=== PATIENT | female | born 1995 | race Caucasian/White ===

== ENCOUNTER 2023-10-08 17:19 | Emergency (ER) | payer OTHER, SELFPAY ==
[2023-10-08 17:21] VITALS: BP 133/90
[2023-10-08 17:44] LABS: % Basophils 0.8 % (0-2); % Immature Granulocytes 0.4 % (0-0.5); % Lymphocytes 34.3 % (20.5-51.1); % Monocytes 6.5 % (1.7-9.3); Absolute Basophils 0.1 10^3/uL (0-0.2); Absolute Eosinophils 0.2 10^3/uL (0-0.7); Absolute Lymphocytes 2.6 10^3/uL (1.2-3.4); Absolute Monocytes 0.5 10^3/uL (0.1-0.6); Absolute Neutrophils 4.3 10^3/uL (1.4-6.5); Hemoglobin 13.3 g/dL (12.0-16.0); Mean Corp Hgb Conc. 35.9 g/dL (33.0-37.0); Mean Corpuscular Hgb 29.5 pg (27.0-31.0); Mean Platelet Volume 9.3 fL (7.4-10.4); Nucleated Red Blood Cells % 0 %; Platelet Count 314 10^3/uL (130-400); Red Blood Cell Count 4.51 10^6/uL (4.20-5.40); Red Cell Dist. Width 11.8 % (11.5-14.5); White Blood Cell Count 7.6 10^3/uL (4.8-10.8)
[2023-10-08 17:54] LABS: HCG, Serum Qualitative Screen Negative
[2023-10-08 17:57] LABS: ALT (SGPT) 12 U/L (0-35); AST (SGOT) 26 U/L (14-36); Albumin 4.9 g/dl (3.5-5.0); Alkaline Phosphatase 68 U/L (38-126); Blood Urea Nitrogen 7 mg/dl (7-17); Calcium 9.8 mg/dl (8.4-10.2); Carbon Dioxide 22 mmol/L (22-30); Chloride 105 mmol/L (98-107); Glucose 95 mg/dl (70-99); Potassium 3.8 mmol/L (3.5-5.1); Sodium 137 mmol/L (135-145); Total Bilirubin 0.4 mg/dl (0.2-1.3); Total Protein 8.1 g/dl (6.3-8.2); eGFR > 60.00
[2023-10-08 17:58] LABS: Lipase 252 U/L (23-300)
[2023-10-08 18:46] VITALS: BMI 21.8
[2023-10-08 18:48] VITALS: BP 126/83
--- NOTE | 2023-10-08 19:06 | ED.GENMED ---
History of Present Illness
General
Chief Complaint: Abdominal Pain
Source: patient
Exam Limitations: none
Time Seen by Provider: 10/08/23 18:20
History of Present Illness
History of Present Illness:
This is a 28 year old female that comes in with c/o epigastric pain. States that this started about 2 weeks ago. states that she went to on Wednesday and they gave her Prilosec and Zofran. States that on Wednesday she vomiting and had diarrhea.
States that she called the PCP and was told they were unable to see her until . States that the pain is the worse in the morning and that it seems to get better after eating and throughout the day. States that she has been nauseated and had
a headache. Denies any fever, chills, chest pain, SOB, vomiting, diarrhea, dizziness, urinary burning.
Past History
Past History
ED Past Medical History: Other (Psoriasis)
ED Past Surgical History: None
Social History
Tobacco: Non-smoker
Alcohol: Occasional
Drug: None
Personal: Single
Living: with family
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
Review of Systems
Review of Systems
All Other Systems: ROS reviewed and negative except as documented in HPI and ROS
Constitutional: Reports no symptoms; Denies fever or chills
EENT: Reports no symptoms
Respiratory: Reports no symptoms; Denies cough or trouble breathing
Cardiac: Reports no symptoms; Denies chest pain
ABD/GI: Reports abdominal pain and nausea; Denies vomiting or diarrhea
: Reports no symptoms; Denies dysuria, frequency or urgency
Musculoskeletal: Reports no symptoms
Skin: Reports no symptoms
Neurological: Reports headache; Denies dizzy
Psychiatric: Reports no symptoms
Phy Exam
General Physical Exam
General Presentation: well appearing and no apparent distress
General age: appears stated age
General Skin: warm and dry
General Habitus: normal
General Mental: alert
General Hydration: appears well hydrated
ENT Exam
ENT Exam: TM's normal, pharynx normal and neck supple
Eye Exam
Eye Exam: EOMI
Cardiovascular Exam
Cardiovascular Exam: regular rate/rhythm, no edema, no murmur and normal peripheral pulses
Pulmonary Exam
Pulmonary Exam: lungs clear, no respiratory distress, no rales, chest non tender, no crackles, no rhonchi, no wheezing and no cough
Gastrointestinal Exam
Gastrointestinal Exam: normal bowel sounds, soft, no organomegaly, no pulsatile mass, non distended and tender (Slight epigastric area)
Musculoskeletal Exam
Musculoskeletal Exam: full ROM and no edema
Skin Exam
Skin Exam: normal color, warm/dry, no rash and no petechia
Psychiatric Exam
Psychiatric Exam: normal mood/affect
Course
Orders/Labs/Results
Orders:
Orders
10/08/23 17:29
Test Result ONCE
10/08/23 17:36
Complete Blood Count/With Diff Urgent
Comprehensive Metabolic Panel Urgent
HCG, Serum Qualitative Screen Urgent
Lipase Urgent
10/08/23 19:05
Sucralfate Suspension [Carafate Suspension] 1 gm PO NOW STA
10/08/23 17:36
10/08/23 17:36
Labs unremarkable. Lipase normal at 253, HCG negative.
Vital Signs
Initial and Last Documented VS:
Initial Vital Signs
Temp Pulse Resp BP Pulse Ox
98 F 94 14 133/90 100
10/08/23 17:21 10/08/23 17:21 10/08/23 17:21 10/08/23 17:21 10/08/23 17:21
Last Documented Vital Signs
Temp Pulse Resp BP Pulse Ox
98 F 94 18 126/83 98
10/08/23 17:21 10/08/23 18:48 10/08/23 18:48 10/08/23 18:48 10/08/23 18:48
MDM/Problems Addressed
Differential Diagnosis Includes:
Gastritis, developing Ulcer
MDM/Problems Addressed:
This is a 28 year old female that comes in with c/o epigastric pain. State that she was at on Wednesday and given Prilosec and Zofran. States that on Wednesday she had diarrhea and vomiting but has not had either since. States that she feels this is
not helping and that her discomfort is worse in the morning and gets better throughout the day.
Will check labs. Explained to patient that this is most likely a Gastritis or a developing Ulcer. patient to stay on a blade diet. Will add Carafate. Explained that the US or CT would help us with this pain and that she will need to see the GI
specialist. Patient to return with any concerns.
Chronic conditions affecting care:
NA
Acute Exacerbation and/or Progression of Chronic Illness:
NA
*Pulse Oximetry
Patient hypoxic: no
*EKG
Interpreted by ED Provider?: NA
Rate: EKG- N/A
*Logging Contractor Interpretation
Rate: Logging Contractor- N/A
*Critical Care Note
Total Time (30-74mins, 75-104mins- exclusive of procedures): Not Applicable
ED Attending Note
-
Portions of this chart may have been created with voice recognition software.� Occasional wrong word or��sound alike� substitutions may have occurred due to the inherent limitations of voice recognition software.
Discharge Plan
Departure
Patient Disposition: Home (Routine Discharge)
Date of Disposition: 10/08/23
Time of Disposition: 19:13
Patient with high blood pressure during this ER visit?: No
Condition: Good
Covid-19: Not Applicable
Discharge Problem:
Gastritis
Instructions: [place] Diet, Gastritis (DC)
Prescriptions:
New
sucralfate [Carafate] 1 gram tablet
1 g PO ACHS Qty: 40 0RF
Rx Instructions:
Dissolve in 2 tsp water, 30min-1hour before meals and HS
No Action
No Current Medications
valacyclovir [Valtrex] 1 gram tablet
1,000 mg PO BID Qty: 10 0RF
valacyclovir [Valtrex] 1 gram tablet
1,000 mg PO BID Qty: 10 0RF
Referrals:
Severo Douglas MD [Family Provider] - Follow up in 10 days
Activity Restrictions/Additional Instructions:
As discussed, your blood work is normal. This is most likely a gastritis or a developing ulcer. Please continue with the Prilosec that you were given. You have had a prescription sent to your Pharmacy for Carafate. Please take this 30 min to 1 hour
before meals and at bedtime. Please dissolve this in 2 tsp of water and drink. Follow up with the family doctor for recheck. You have also been given the Name of a Gastrointestinal specialist for further evaluation. Try to stay away from caffeine
products as this irritates the stomach lining. IF YOU HAVE INCREASED OR CHANGING PAIN, FEVER, OR YOU HAVE ANY OTHER CONCERNS PLEASE RETURN TO THE EMERGENCY ROOM.
Interventions
Interventions:
*Risk Screen - Suicide Last Done: 10/08/23 17:21
*General Assessment Last Done: 10/08/23 17:21
*Neglect/Abuse Screening Last Done: 10/08/23 17:21
ED- Fall Risk Assessment Last Done: 10/08/23 18:51
*ED COVID-19 Vaccine History Last Done: 10/08/23 17:21
ZA-Tupdfw-Ceypexrwsw Assessment Last Done: 10/08/23 18:50
Discharge Date and Time
Print Language: JAMAICAN
[2023-10-08] MEDS: CARAFATE SUSPENSION 1 GM PO (19:26)
== END 2023-10-08 19:29 | disposition home or self-care (01) ==
LOC: EMR 17:19
PROVIDERS: Emergency Medicine; EMERGENCY PHYSICIAN Emergency Medicine; FAMILY PHYSICIAN Family Medicine
DX: K29.70 Gastritis, unspecified, without bleeding (principal); L40.9 Psoriasis, unspecified
CPT/HCPCS: 99283; 80053; 83690; 84703; 85025

== ENCOUNTER 2023-11-03 18:50 | Emergency (ER) | payer OTHER, SELFPAY ==
--- NOTE | 2023-11-03 19:03 | ED.PDOC.TRB ---
ED Provider Triage
-
Patient seen by provider in Triage?: Seen in Triage
This is a 28 year old female that comes in with c/o abd pain. States that she was here first week of september. States that she saw her PCP and was told to see GI. States that she can't see GI until January 23. States that she is nauseated and can'
eat. States that she has take Protonix. Patient is no longer on the Carafate. Nothing helps. States that she feels the same and that the pain is in the upper abd.
[2023-11-03 19:04] VITALS: BP 119/99
[2023-11-03 19:25] LABS: % Basophils 0.7 % (0-2); % Eosinophils 1.5 % (0-6); % Immature Granulocytes 0.3 % (0-0.5); % Monocytes 8.1 % (1.7-9.3); % Neutrophils 59.4 % (42.2-75.2); Absolute Basophils 0.1 10^3/uL (0-0.2); Absolute Eosinophils 0.1 10^3/uL (0-0.7); Absolute Lymphocytes 2.2 10^3/uL (1.2-3.4); Absolute Monocytes 0.6 10^3/uL (0.1-0.6); Absolute Neutrophils 4.3 10^3/uL (1.4-6.5); Hematocrit 36.8 % (37.0-47.0); Hemoglobin 13.3 g/dL (12.0-16.0); Mean Corp Hgb Conc. 36.1 g/dL (33.0-37.0); Mean Corpuscular Hgb 29.6 pg (27.0-31.0); Mean Corpuscular Volume 81.8 fL (81.0-99.0); Mean Platelet Volume 9.5 fL (7.4-10.4); Nucleated Red Blood Cells % 0 %; Platelet Count 336 10^3/uL (130-400); Red Cell Dist. Width 11.7 % (11.5-14.5); White Blood Cell Count 7.3 10^3/uL (4.8-10.8)
[2023-11-03 19:38] LABS: HCG, Serum Qualitative Screen Negative
[2023-11-03 19:42] LABS: ALT (SGPT) 12 U/L (0-35); AST (SGOT) 26 U/L (14-36); Albumin 4.8 g/dl (3.5-5.0); Alkaline Phosphatase 66 U/L (38-126); Blood Urea Nitrogen 9 mg/dl (7-17); Calcium 9.9 mg/dl (8.4-10.2); Carbon Dioxide 21 mmol/L (22-30); Chloride 104 mmol/L (98-107); Glucose 93 mg/dl (70-99); Potassium 3.9 mmol/L (3.5-5.1); Sodium 143 mmol/L (135-145); Total Bilirubin 0.5 mg/dl (0.2-1.3); eGFR > 60.00
[2023-11-03 19:43] LABS: Lipase 175 U/L (23-300)
[2023-11-03 21:30] VITALS: BP 137/82
--- NOTE | 2023-11-03 22:17 | ED.GENMED ---
History of Present Illness
General
Chief Complaint: Abdominal Pain
Source: patient
Exam Limitations: none
Time Seen by Provider: 11/03/23 21:38
History of Present Illness
History of Present Illness:
This is a 28 year old female that comes in with c/o abd pain. States that she was seen here in the past and she followed up with her PCP. States that she has been on a bland diet and the PCP told her that it would just go away. States that she was
not getting any better so she called the GI specialist and she can't get in until January 23. States that she is having Trouble eating and going to work due to the pain. States that this has been going on since September 22. States that she is
nauseated and has a headache. Denies any fever, chills, chest pain, SOB, vomiting, diarrhea, dizziness, urinary burning.
Past History
Past History
ED Past Medical History: Other (Psoriasis); Negative Asthma, HTN, Hypercholesterolemia or NIDDM
ED Past Surgical History: None
Social History
Tobacco: Non-smoker
Alcohol: None
Drug: None
Personal: Single
Living: with family
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
Review of Systems
Review of Systems
All Other Systems: ROS reviewed and negative except as documented in HPI and ROS
Constitutional: Reports no symptoms; Denies fever or chills
EENT: Reports no symptoms
Respiratory: Denies no symptoms, cough or trouble breathing
Cardiac: Reports no symptoms; Denies chest pain
ABD/GI: Reports abdominal pain and nausea; Denies vomiting or diarrhea
: Reports no symptoms; Denies dysuria, frequency or urgency
Musculoskeletal: Reports no symptoms
Skin: Reports no symptoms
Neurological: Reports headache; Denies dizzy
Psychiatric: Reports no symptoms
Phy Exam
General Physical Exam
General Presentation: well appearing and no apparent distress
General age: appears stated age
General Skin: warm and dry
General Habitus: normal
General Mental: alert
General Hydration: appears well hydrated
ENT Exam
ENT Exam: TM's normal, pharynx normal and neck supple
Eye Exam
Eye Exam: EOMI
Cardiovascular Exam
Cardiovascular Exam: regular rate/rhythm, no edema, no murmur and normal peripheral pulses
Pulmonary Exam
Pulmonary Exam: lungs clear, no respiratory distress, no rales, chest non tender, no crackles, no rhonchi, no wheezing and no cough
Gastrointestinal Exam
Gastrointestinal Exam: normal bowel sounds, soft, no organomegaly, no pulsatile mass, non distended and tender (epigastric and RUQ tenderness with palpation)
Musculoskeletal Exam
Musculoskeletal Exam: full ROM and no edema
Skin Exam
Skin Exam: normal color, warm/dry, no rash and no petechia
Psychiatric Exam
Psychiatric Exam: normal mood/affect
Course
Orders/Labs/Results
Orders:
Orders
11/03/23 19:06
Test Result ONCE
11/03/23 19:16
Complete Blood Count/With Diff Urgent
Comprehensive Metabolic Panel Urgent
HCG, Serum Qualitative Screen Urgent
Lipase Urgent
11/03/23 22:16
Pantoprazole [Protonix] 40 mg PO NOW STA
Sucralfate Suspension [Carafate Suspension] 1 gm PO NOW STA
US Abdomen Complete/Upper Urgent
Comment:
Reason For Exam: Epigastric and right upper quadrent pain
Abnormal Lab Results
11/03/23
19:16
Hct 36.8 L %
(37.0-47.0)
Carbon Dioxide 21 L mmol/L
(22-30)
11/03/23 19:16
11/03/23 19:16
C02 slightly low. HCG negative. Lipase normal at 175
Vital Signs
Initial and Last Documented VS:
Initial Vital Signs
Temp Pulse Resp BP Pulse Ox
99.1 F 113 20 119/99 100
11/03/23 19:04 11/03/23 19:04 11/03/23 19:04 11/03/23 19:04 11/03/23 19:04
Last Documented Vital Signs
Temp Pulse Resp BP Pulse Ox
99.1 F 113 20 119/99 100
11/03/23 19:04 11/03/23 19:04 11/03/23 19:04 11/03/23 19:04 11/03/23 19:04
MDM/Problems Addressed
Differential Diagnosis Includes:
Gastritis, Anxiety
MDM/Problems Addressed:
This is a 28 year old female that comes in with c/o upper abd pain. States that this has been going on since August. States that she was seen here and has seen her PCP but is unable to get in with GI specialist until December.
Will check labs, Ultrasound. Give Protonix and Carafate.
Back into see patient. Explained that her Ultrasound is normal. Will have patient use Protonix and Carafate and follow up with the GI specialist. Return with any concerns.
Chronic conditions affecting care:
NA
Acute Exacerbation and/or Progression of Chronic Illness:
NA
*Radiology
Radiology exam reviewed: radiology read reviewed (US-Unremarkable)
*Pulse Oximetry
Patient hypoxic: no
*EKG
Interpreted by ED Provider?: NA
Rate: EKG- N/A
*Financial Planning Assistant Interpretation
Rate: Financial Planning Assistant- N/A
*Critical Care Note
Total Time (30-74mins, 75-104mins- exclusive of procedures): Not Applicable
ED Attending Note
-
Portions of this chart may have been created with voice recognition software.� Occasional wrong word or��sound alike� substitutions may have occurred due to the inherent limitations of voice recognition software.
Discharge Plan
Departure
Patient Disposition: Home (Routine Discharge)
Date of Disposition: 11/03/23
Time of Disposition: 23:50
Patient with high blood pressure during this ER visit?: No
Condition: Good
Covid-19: Not Applicable
Discharge Problem:
Gastritis
Instructions: Gastritis (DC)
Prescriptions:
New
pantoprazole [Protonix] 40 mg tablet,delayed release (DR/EC)
40 mg PO DAILY Qty: 30 0RF
sucralfate [Carafate] 1 gram tablet
1 g PO ACHS Qty: 40 0RF
Rx Instructions:
dissolve 2tsp of water, take 30 min to 1 hour before meals and HS
No Action
No Current Medications
valacyclovir [Valtrex] 1 gram tablet
1,000 mg PO BID Qty: 10 0RF
valacyclovir [Valtrex] 1 gram tablet
1,000 mg PO BID Qty: 10 0RF
sucralfate [Carafate] 1 gram tablet
1 g PO ACHS Qty: 40 0RF
Rx Instructions:
Dissolve in 2 tsp water, 30min-1hour before meals and HS
Referrals:
Severo Douglas MD [Family Provider] - Call in 1-3 days for appt
Activity Restrictions/Additional Instructions:
As discussed, your blood work is normal along with your Ultrasound. Please increase your water intake to 8-8oz glasses daily. Follow up with the GI specialist for further evaluation. You have had 2 prescriptions sent to your Pharmacy. The first is
for Protonix. Please take this daily as directed. The second is for Carafate. Please dissolve in 2 tsp of water and drink 30min to 1 hour before meals and at bedtime. IF YOU HAVE ANY OTHER CONCERNS PLEASE RETURN TO THE EMERGENCY ROOM.
Discharge Date and Time
Print Language: MALDIVIAN
[2023-11-03] MEDS: PROTONIX 40 MG PO (23:04)
[2023-11-03] MEDS: CARAFATE SUSPENSION 1 GM PO (23:04)
[2023-11-04 00:05] VITALS: BP 108/84
== END 2023-11-04 00:21 | disposition home or self-care (01) ==
LOC: EMR 18:50
PROVIDERS: Clinical Nurse Specialist Family Health; EMERGENCY PHYSICIAN Emergency Medicine; FAMILY PHYSICIAN Family Medicine
DX: K29.70 Gastritis, unspecified, without bleeding (principal); L40.9 Psoriasis, unspecified
CPT/HCPCS: 99284; 76700; 80053; 83690; 84703; 85025

== ENCOUNTER 2023-11-05 10:10 | Emergency (ER) | payer OTHER, SELFPAY ==
[2023-11-05 10:13] VITALS: BP 139/85
--- NOTE | 2023-11-05 10:37 | ED.GENMED ---
History of Present Illness
<Jad Laboy PA-C - Last Filed: 11/05/23 13:14>
General
Chief Complaint: Abdominal Pain
Source: patient and family
Time Seen by Provider: 11/05/23 10:17
History of Present Illness
History of Present Illness:
28-year-old female presenting to the emergency department for reevaluation after being seen 2 days ago and diagnosed with suspected gastritis due to worsening pain, dry heaves and generally feeling unwell. Patient did have an appointment scheduled
with GI for late December but and was able to get this appointment moved up to November 18 but due to the symptoms and no improvement with medications given 2 days ago decided to come back to the ER. States symptoms are not new today however does
note some pain within the lower part of her abdomen now. Social history noncontributory. Patient with minimal use of NSAIDs. Family history noncontributory. Last menstrual period October 27. No other concerns
Past History
<Jad Laboy PA-C - Last Filed: 11/05/23 13:14>
Past History
ED Past Medical History: None
<Gerardo Mcclellan DO - Last Filed: >
Past History
ED Past Medical History: Other (Psoriasis); Negative Asthma, HTN, Hypercholesterolemia or NIDDM
ED Past Surgical History: None
Social History
Tobacco: Non-smoker
Alcohol: None
Drug: None
Personal: Single
Living: with family
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
Review of Systems
<Jad Laboy PA-C - Last Filed: 11/05/23 13:14>
Review of Systems
All Other Systems: ROS reviewed and negative except as documented in HPI and ROS
Phy Exam
<Jad Laboy PA-C - Last Filed: 11/05/23 13:14>
Physical Exam
Physical Exam:
GENERAL: Alert , in no apparent distress
EYE: clear conjunctiva b/l
HEAD: NCAT
ENT: mmm.
CARDIAC: Regular rate and rhythm .
LUNGS: Clear breath sounds bilaterally, no acute respiratory distress, no wheezes/rales/rhonchi
ABDOMEN: Soft, generalized tenderness, no r/g, no cvat, negative Moore sign, no tenderness at McBurney's point
NEUROLOGICAL: Alert and oriented
SKIN: Warm and dry, skin intact.
MUSCULOSKELETAL: well perfused.
PSYCH: Normal and appropriate interaction.
Scores
<Jad Laboy PA-C - Last Filed: 11/05/23 13:14>
Heart Failure Risk
Heart Failure Risk Score: Not Applicable
Heart Score for Chest Pain Patients
STEMI patient?: Not applicable
Withdrawal Assessment of Alcohol
Withdrawal Assessment Completed?: Not applicable
Course
<Jad Laboy PA-C - Last Filed: 11/05/23 13:14>
Orders/Labs/Results
Orders:
Orders
11/05/23 10:38
CT Abd/pelvis W Iv Cont Urgent
Comment:
Reason For Exam: generalized abd pain
Mag Hydrox/Al Hydrox/Simeth [Maalox] 30 ml Phenobarb/Hyoscy/Atropine/Scop [] 10 ml Viscous Lidocaine 2% [Xylocaine Viscous Cup] 10 ml PO NOW
Ondansetron Injectable [Zofran] 4 mg IV NOW STA
Test Result ONCE
11/05/23 10:55
Complete Blood Count/With Diff Urgent
Comprehensive Metabolic Panel Urgent
HCG, Serum Qualitative Screen Urgent
Lipase Urgent
11/05/23 10:57
Mag Hydrox/Al Hydrox/Simeth [Maalox] 30 ml .ROUTE .STK-MED ONE
Phenobarb/Hyoscy/Atropine/Scop [] 10 ml .ROUTE .STK-MED ONE
Viscous Lidocaine 2% [Xylocaine Viscous Cup] 15 ml .ROUTE .STK-MED ONE
11/05/23 12:15
Urinalysis Reflex To Culture Urgent
Date Specimen was Collected: 11/05/23
Time Specimen was Collected: 11:51
Urine Microscopic Reflex Cult Urgent
Abnormal Lab Results
11/05/23 11/05/23
10:55 12:15
Calcium 10.3 H mg/dl
(8.4-10.2)
Leukocyte Esterase Rfl Trace A
(Negative)
Urine Bacteria (Reflex) Few A
(Negative)
11/05/23 10:55
11/05/23 10:55
Vital Signs
Initial and Last Documented VS:
Initial Vital Signs
Temp Pulse Resp BP Pulse Ox
98.2 F 107 16 139/85 98
11/05/23 10:13 11/05/23 10:13 11/05/23 10:13 11/05/23 10:13 11/05/23 10:13
Last Documented Vital Signs
Temp Pulse Resp BP Pulse Ox
98.2 F 73 16 108/76 100
11/05/23 10:13 11/05/23 12:24 11/05/23 12:24 11/05/23 12:24 11/05/23 12:24
Shwethalt;Julio Soares, DO - Last Filed: 11/06/23 09:40>
Orders/Labs/Results
Orders:
Orders
11/05/23 10:38
CT Abd/pelvis W Iv Cont Urgent
Comment:
Reason For Exam: generalized abd pain
Mag Hydrox/Al Hydrox/Simeth [Maalox] 30 ml Phenobarb/Hyoscy/Atropine/Scop [] 10 ml Viscous Lidocaine 2% [Xylocaine Viscous Cup] 10 ml PO NOW
Ondansetron Injectable [Zofran] 4 mg IV NOW STA
Test Result ONCE
11/05/23 10:55
Complete Blood Count/With Diff Urgent
Comprehensive Metabolic Panel Urgent
HCG, Serum Qualitative Screen Urgent
Lipase Urgent
11/05/23 10:57
Mag Hydrox/Al Hydrox/Simeth [Maalox] 30 ml .ROUTE .STK-MED ONE
Phenobarb/Hyoscy/Atropine/Scop [] 10 ml .ROUTE .STK-MED ONE
Viscous Lidocaine 2% [Xylocaine Viscous Cup] 15 ml .ROUTE .STK-MED ONE
11/05/23 12:15
Urinalysis Reflex To Culture Urgent
Date Specimen was Collected: 11/05/23
Time Specimen was Collected: 11:51
Urine Microscopic Reflex Cult Urgent
Abnormal Lab Results
11/05/23 11/05/23
10:55 12:15
Calcium 10.3 H mg/dl
(8.4-10.2)
Leukocyte Esterase Rfl Trace A
(Negative)
Urine Bacteria (Reflex) Few A
(Negative)
11/05/23 10:55
11/05/23 10:55
Vital Signs
Initial and Last Documented VS:
Initial Vital Signs
Temp Pulse Resp BP Pulse Ox
98.2 F 107 16 139/85 98
11/05/23 10:13 11/05/23 10:13 11/05/23 10:13 11/05/23 10:13 11/05/23 10:13
Last Documented Vital Signs
Temp Pulse Resp BP Pulse Ox
98.2 F 73 16 108/76 100
11/05/23 10:13 11/05/23 12:24 11/05/23 12:24 11/05/23 12:24 11/05/23 12:24
Shwethalt;Gerardo Mcclellan, DO - Last Filed: >
Orders/Labs/Results
Orders:
Orders
11/05/23 10:38
CT Abd/pelvis W Iv Cont Urgent
Comment:
Reason For Exam: generalized abd pain
Mag Hydrox/Al Hydrox/Simeth [Maalox] 30 ml Phenobarb/Hyoscy/Atropine/Scop [] 10 ml Viscous Lidocaine 2% [Xylocaine Viscous Cup] 10 ml PO NOW
Ondansetron Injectable [Zofran] 4 mg IV NOW STA
Test Result ONCE
11/05/23 10:55
Complete Blood Count/With Diff Urgent
Comprehensive Metabolic Panel Urgent
HCG, Serum Qualitative Screen Urgent
Lipase Urgent
11/05/23 10:57
Mag Hydrox/Al Hydrox/Simeth [Maalox] 30 ml .ROUTE .STK-MED ONE
Phenobarb/Hyoscy/Atropine/Scop [] 10 ml .ROUTE .STK-MED ONE
Viscous Lidocaine 2% [Xylocaine Viscous Cup] 15 ml .ROUTE .STK-MED ONE
11/05/23 12:15
Urinalysis Reflex To Culture Urgent
Date Specimen was Collected: 11/05/23
Time Specimen was Collected: 11:51
Urine Microscopic Reflex Cult Urgent
Abnormal Lab Results
11/05/23 11/05/23
10:55 12:15
Calcium 10.3 H mg/dl
(8.4-10.2)
Leukocyte Esterase Rfl Trace A
(Negative)
Urine Bacteria (Reflex) Few A
(Negative)
11/05/23 10:55
11/05/23 10:55
Vital Signs
Initial and Last Documented VS:
Initial Vital Signs
Temp Pulse Resp BP Pulse Ox
98.2 F 107 16 139/85 98
11/05/23 10:13 11/05/23 10:13 11/05/23 10:13 11/05/23 10:13 11/05/23 10:13
Last Documented Vital Signs
Temp Pulse Resp BP Pulse Ox
98.2 F 73 16 108/76 100
11/05/23 10:13 11/05/23 12:24 11/05/23 12:24 11/05/23 12:24 11/05/23 12:24
<Jad Laboy PA-C - Last Filed: 11/05/23 13:14>
MDM/Problems Addressed
Differential Diagnosis Includes:
GERD, gastritis, hiatal hernia, pancreatitis,, peptic ulcer disease, duodenitis, given duration of symptoms less concern for an acute surgical abdomen
MDM/Problems Addressed:
28-year-old female presenting back to the emergency department for evaluation after being seen a few days ago and diagnosed with suspected gastritis. Has an appointment scheduled with GI for November 18 now. No relief with Protonix and Carafate.
Still appears somewhat uncomfortable on exam given repeat visit will obtain CT scan to rule out any other acute surgical pathologies or other intra-abdominal pathologies. Will treat with green grabber and Zofran for continued nausea. Reassessment
following
<Jad Laboy PA-C - Last Filed: 11/05/23 13:14>
*Radiology
Radiology exam reviewed: radiology read reviewed
*Pulse Oximetry
Patient hypoxic: no
*Critical Care Note
Total Time (30-74mins, 75-104mins- exclusive of procedures): Not Applicable
Data Reviewed
Review of Other/Old Records Reveals: Records and Radiology Studies
<Jad Laboy PA-C - Last Filed: 11/05/23 13:14>
Patient Management
Escalation/DeEscalation of care consider admission/obs:
Patient CT without any acute abnormalities. She will f/u with GI as scheduled. Aware of return precautions and stable for d/c home
<Julio Soares DO - Last Filed: 11/06/23 09:40>
Update Note
Update Note:
Bentyl rx sent, as pharmacy does not have donnetal
ED Attending Note
<Gerardo Mcclellan DO - Last Filed: >
-
Portions of this chart may have been created with voice recognition software.� Occasional wrong word or��sound alike� substitutions may have occurred due to the inherent limitations of voice recognition software.
Discharge Plan
Departure
Patient Disposition: Home (Routine Discharge)
Date of Disposition: 11/05/23
Time of Disposition: 12:38
Patient with high blood pressure during this ER visit?: No
Discharge Problem:
Abdominal pain
Instructions: Abdominal Pain
Prescriptions:
New
pwikpqczq-qcoaah-fyrlxtms-scop [] 16.2 mg-0.1037 mg/5 mL (5 mL) elixir
5 ml PO ACHS Qty: 50 0RF
alum-mag hydroxide-simeth [Maalox Maximum Strength] 400-400-40 mg/5 mL suspension
10 ml PO TID PRN (Reason: abdominal pain) Qty: 100 0RF
dicyclomine 10 mg capsule
10 mg PO QID PRN (Reason: abdominal pain/discomfort) Qty: 30 0RF
No Action
No Current Medications
valacyclovir [Valtrex] 1 gram tablet
1,000 mg PO BID Qty: 10 0RF
valacyclovir [Valtrex] 1 gram tablet
1,000 mg PO BID Qty: 10 0RF
sucralfate [Carafate] 1 gram tablet
1 g PO ACHS Qty: 40 0RF
Rx Instructions:
Dissolve in 2 tsp water, 30min-1hour before meals and HS
pantoprazole [Protonix] 40 mg tablet,delayed release (DR/EC)
40 mg PO DAILY Qty: 30 0RF
sucralfate [Carafate] 1 gram tablet
1 g PO ACHS Qty: 40 0RF
Rx Instructions:
dissolve 2tsp of water, take 30 min to 1 hour before meals and HS
Referrals:
Severo Douglas MD [Family Provider] -
Interventions
Interventions:
*Risk Screen - Suicide Last Done: 11/05/23 10:13
*General Assessment Last Done: 11/05/23 10:13
*Neglect/Abuse Screening Last Done: 11/05/23 10:13
ED- Fall Risk Assessment Last Done: 11/05/23 11:12
*ED COVID-19 Vaccine History Last Done: 11/05/23 11:06
*Nursing Disposition Last Done: 11/05/23 12:48
PC-Vsyhrj-Jdbwdehseo Assessment Last Done: 11/05/23 10:40
Discharge Date and Time
Discharge Date/Time: 11/05/23 12:48
Print Language: CITIZEN OF [place]
[2023-11-05 10:40] VITALS: BMI 19.8
[2023-11-05] MEDS: ZOFRAN 4 MG IV (11:01)
[2023-11-05] MEDS: MAALOX 50 PO (11:01)
[2023-11-05 11:02] LABS: % Basophils 0.8 % (0-2); % Eosinophils 1.5 % (0-6); % Immature Granulocytes 0.4 % (0-0.5); % Lymphocytes 32.9 % (20.5-51.1); % Monocytes 6.6 % (1.7-9.3); % Neutrophils 57.8 % (42.2-75.2); Absolute Eosinophils 0.1 10^3/uL (0-0.7); Absolute Lymphocytes 1.7 10^3/uL (1.2-3.4); Absolute Monocytes 0.3 10^3/uL (0.1-0.6); Hematocrit 37.6 % (37.0-47.0); Hemoglobin 13.4 g/dL (12.0-16.0); Mean Corp Hgb Conc. 35.6 g/dL (33.0-37.0); Mean Corpuscular Hgb 29.3 pg (27.0-31.0); Mean Corpuscular Volume 82.3 fL (81.0-99.0); Mean Platelet Volume 9.6 fL (7.4-10.4); Nucleated Red Blood Cells % 0 %; Platelet Count 305 10^3/uL (130-400); Red Blood Cell Count 4.57 10^6/uL (4.20-5.40); Red Cell Dist. Width 11.6 % (11.5-14.5); White Blood Cell Count 5.2 10^3/uL (4.8-10.8)
[2023-11-05 11:26] LABS: ALT (SGPT) 12 U/L (0-35); AST (SGOT) 25 U/L (14-36); Albumin 4.7 g/dl (3.5-5.0); Alkaline Phosphatase 64 U/L (38-126); Blood Urea Nitrogen 11 mg/dl (7-17); Calcium 10.3 mg/dl (8.4-10.2); Carbon Dioxide 23 mmol/L (22-30); Chloride 103 mmol/L (98-107); Estimated Creatinine Clearance 96 ml/min; Glucose 90 mg/dl (70-99); Lipase 251 U/L (23-300); Potassium 4.1 mmol/L (3.5-5.1); Sodium 139 mmol/L (135-145); Total Bilirubin 0.6 mg/dl (0.2-1.3); Total Protein 7.5 g/dl (6.3-8.2); eGFR > 60.00
[2023-11-05 11:29] LABS: HCG, Serum Qualitative Screen Negative
[2023-11-05 12:24] VITALS: BP 108/76
[2023-11-05 12:56] LABS: Urine Albumin Negative (Neg - Trace); Urine Bilirubin Negative (Negative); Urine Character Clear (Clear); Urine Color Yellow; Urine Glucose Negative (Negative); Urine Ketone Negative (Negative); Urine Leukocyte Trace (Negative); Urine Nitrite Negative (Negative); Urine Occult Blood Negative (Negative); Urine Urobilinogen Negative (Neg - 1+)
[2023-11-05 13:04] LABS: Urine Red Blood Cell 0-2 /HPF (0-2); Urine Squamous Cell 21-25 /LPF (Few)
[2023-11-05 13:05] LABS: Urine Bacteria Few (Negative)
== END 2023-11-05 12:48 | disposition home or self-care (01) ==
LOC: EMR 10:10
PROVIDERS: Physician Assistant Medical; EMERGENCY PHYSICIAN Emergency Medicine; FAMILY PHYSICIAN Family Medicine
DX: R10.84 Generalized abdominal pain (principal); R11.0 Nausea; L40.9 Psoriasis, unspecified; Z88.8 Allergy status to other drugs, medicaments and biological substances; Z91.018 Allergy to other foods
CPT/HCPCS: 99285; 96374; 74177; 80053; 81003; 81015; 83690; 84703; 85025; Q9967

== ENCOUNTER → 2024-01-05 17:18 | Outpatient (REF) | payer OTHER, SELFPAY | LOC: RAD 17:18 | PROVIDERS: ATTENDING PHYSICIAN Internal Medicine; FAMILY PHYSICIAN Hospitalist | DX: R19.4 Change in bowel habit (principal); R10.33 Periumbilical pain | CPT/HCPCS: 74019 ==

== ENCOUNTER → 2024-02-18 13:32 | Outpatient (REF) | payer OTHER, SELFPAY | LOC: RAD 13:32 | PROVIDERS: ATTENDING PHYSICIAN Internal Medicine; FAMILY PHYSICIAN Hospitalist | DX: R15.2 Fecal urgency (principal); K59.9 Functional intestinal disorder, unspecified | CPT/HCPCS: 74019 ==

== ENCOUNTER 2024-02-19 19:54 | Emergency (ER) | payer OTHER, SELFPAY ==
[2024-02-19 19:56] VITALS: BP 147/107
--- NOTE | 2024-02-19 21:04 | ED.GENMED ---
History of Present Illness
General
Chief Complaint: Bowel Problem
Source: patient
Exam Limitations: none
Time Seen by Provider: 02/19/24 20:17
History of Present Illness
History of Present Illness:
This is a 28 year old female that comes in with c/o constipation. States that she was here in the summer for the same think. States that she has seen GI and she was told that she has constipation. States that in October she did a colon cleans and
she was still constipated so she did this again. Then she was given Magnesium Supplements and this made her nauseated so she stopped them. States that she did the Colon cleans for the third time. States that know she has been put on Linzess and
stool softeners and this is not helping. State that she may only have a few hard balls. States that she was told by the GI Specialist to due an enema, which she did and this did not help. Denies any fever, chills, chest pain, SOB, nausea, vomiting,
diarrhea, headache, dizziness, urinary burning.
Past History
Past History
ED Past Medical History: Asthma, Hypercholesterolemia and Other (Psoriasis, back pain, constipation); Negative HTN or NIDDM
ED Past Surgical History: None
Social History
Tobacco: Non-smoker
Alcohol: Occasional
Drug: None
Personal: Single
Living: with family
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
Review of Systems
Review of Systems
All Other Systems: ROS reviewed and negative except as documented in HPI and ROS
Constitutional: Reports no symptoms; Denies fever or chills
EENT: Reports no symptoms
Respiratory: Reports no symptoms; Denies cough or trouble breathing
Cardiac: Reports no symptoms; Denies chest pain
ABD/GI: Reports abdominal pain; Denies nausea, vomiting or diarrhea
: Reports no symptoms; Denies dysuria, frequency or urgency
Musculoskeletal: Reports no symptoms
Skin: Reports no symptoms
Neurological: Reports no symptoms; Denies dizzy or headache
Psychiatric: Reports no symptoms
Phy Exam
General Physical Exam
General Presentation: well appearing and no apparent distress
General age: appears stated age
General Skin: warm and dry
General Habitus: normal
General Mental: alert
General Hydration: appears well hydrated
ENT Exam
ENT Exam: TM's normal, pharynx normal and neck supple
Eye Exam
Eye Exam: EOMI
Cardiovascular Exam
Cardiovascular Exam: regular rate/rhythm, no edema, no murmur and normal peripheral pulses
Pulmonary Exam
Pulmonary Exam: lungs clear, no respiratory distress, no rales, chest non tender, no crackles, no rhonchi, no wheezing and no cough
Gastrointestinal Exam
Gastrointestinal Exam: soft, no organomegaly, no pulsatile mass, non distended, tender (Generalized tenderness with palpation) and other (Hypoactive bowel sounds)
Musculoskeletal Exam
Musculoskeletal Exam: full ROM and no edema
Skin Exam
Skin Exam: normal color, warm/dry, no rash and no petechia
Psychiatric Exam
Psychiatric Exam: normal mood/affect
Course
Orders/Labs/Results
Orders:
Orders
02/19/24 21:03
Lactulose [Duphalac/Chronulac] 20 grams PO NOW STA
02/19/24 21:49
Urinalysis Reflex To Culture Urgent
Date Specimen was Collected: 02/19/24
Time Specimen was Collected: 21:48
Urine Microscopic Reflex Cult Urgent
Abnormal Lab Results
02/19/24
21:49
Leukocyte Esterase Rfl Trace A
(Negative)
Urine Bacteria (Reflex) Few A
(Negative)
Urine negative for infection.
Vital Signs
Initial and Last Documented VS:
Initial Vital Signs
Temp Pulse Resp BP Pulse Ox
98.5 F 101 16 147/107 100
02/19/24 19:56 02/19/24 19:56 02/19/24 19:56 02/19/24 19:56 02/19/24 19:56
Last Documented Vital Signs
Temp Pulse Resp BP Pulse Ox
98.5 F 101 16 120/79 100
02/19/24 19:56 02/19/24 19:56 02/19/24 19:56 02/19/24 21:50 02/19/24 19:56
MDM/Problems Addressed
Differential Diagnosis Includes:
Chronic constipation
MDM/Problems Addressed:
This is a 28 year old female that comes in with c/o constipation. States that this has been going on since the summer. States that she has had a CT scan and this was normal. patient has seen the GI specialist and was placed on Linzess and stool
softeners. States that she has even taken taken an enema. State that nothing has helped. States that she has lower abd discomfort.
Patient had an Out patient X-ray yesterday which shows a moderate volume widespread colonic stool. Explained to patient that her problem will not be fixed tonight. Will get urine to r/o infection and give patient Lactulose that will work to clean
patient out.
Into see patient. Explained that her urine is negative for infection. Will give patient lactulose and explained that this will cause diarrhea. Patient is happy that this will clean her out. Will have patient follow up with the GI specialist. Return
with any concerns.
Chronic conditions affecting care:
Chronic constipation
Acute Exacerbation and/or Progression of Chronic Illness:
Chronic constipation
*Pulse Oximetry
Patient hypoxic: no
*EKG
Interpreted by ED Provider?: NA
Rate: EKG- N/A
*Test Fixture Designer Interpretation
Rate: Test Fixture Designer- N/A
*Critical Care Note
Total Time (30-74mins, 75-104mins- exclusive of procedures): Not Applicable
ED Attending Note
-
Portions of this chart may have been created with voice recognition software.� Occasional wrong word or��sound alike� substitutions may have occurred due to the inherent limitations of voice recognition software.
Discharge Plan
Departure
Patient Disposition: Home (Routine Discharge)
Date of Disposition: 02/19/24
Time of Disposition: 22:13
Patient with high blood pressure during this ER visit?: No
Condition: Good
Covid-19: Not Applicable
Discharge Problem:
Constipation
Instructions: Constipation, Adult (DC)
Prescriptions:
No Action
No Current Medications
valacyclovir [Valtrex] 1 gram tablet
1,000 mg PO BID Qty: 10 0RF
valacyclovir [Valtrex] 1 gram tablet
1,000 mg PO BID Qty: 10 0RF
sucralfate [Carafate] 1 gram tablet
1 g PO ACHS Qty: 40 0RF
Rx Instructions:
Dissolve in 2 tsp water, 30min-1hour before meals and HS
pantoprazole [Protonix] 40 mg tablet,delayed release (DR/EC)
40 mg PO DAILY Qty: 30 0RF
sucralfate [Carafate] 1 gram tablet
1 g PO ACHS Qty: 40 0RF
Rx Instructions:
dissolve 2tsp of water, take 30 min to 1 hour before meals and HS
woafacerp-vqbpbe-oplcxovh-scop [] 16.2 mg-0.1037 mg/5 mL (5 mL) elixir
5 ml PO ACHS Qty: 50 0RF
alum-mag hydroxide-simeth [Maalox Maximum Strength] 400-400-40 mg/5 mL suspension
10 ml PO TID PRN (Reason: abdominal pain) Qty: 100 0RF
dicyclomine 10 mg capsule
10 mg PO QID PRN (Reason: abdominal pain/discomfort) Qty: 30 0RF
Referrals:
Eloina Cerrato MD [Family Provider] -
Activity Restrictions/Additional Instructions:
As discussed, you have a moderate amount of stool and gas in the colon according to your x-ray yesterday. You have been given Lactulose and this will cause diarrhea and clean you out. Please increase your water intake to 8-8oz glasses daily. You may
use Prune juice mixed with apple juice in equal amounts and heat and drink daily. Continue with the medication you have been given by the GI specialist. Follow up with the GI specialist for further evaluation. IF YOU HAVE ANY OTHER CONCERNS PLEASE
RETURN TO THE EMERGENCY ROOM.
Interventions
Interventions:
*Risk Screen - Suicide Last Done: 02/19/24 19:56
*General Assessment Last Done: 02/19/24 19:56
*ED COVID-19 Vaccine History Last Done: 02/19/24 19:56
BY-Ekeqfb-Ljphnbskwc Assessment Last Done: 02/19/24 22:02
Discharge Date and Time
Print Language: PAKIST[place]
[2024-02-19 21:50] VITALS: BP 120/79
[2024-02-19 21:55] LABS: Urine Albumin Negative (Neg - Trace); Urine Bilirubin Negative (Negative); Urine Character Clear (Clear); Urine Color Yellow; Urine Glucose Negative (Negative); Urine Ketone Negative (Negative); Urine Leukocyte Trace (Negative); Urine Nitrite Negative (Negative); Urine Occult Blood Negative (Negative); Urine Specific Gravity 1.005 (<1.030); Urine Urobilinogen Negative (Neg - 1+)
[2024-02-19 22:11] LABS: Urine Bacteria Few (Negative); Urine Red Blood Cell 0-2 /HPF (0-2); Urine White Cell 0-2 /HPF (0-5)
[2024-02-19] MEDS: DUPHALAC/CHRONULAC 20 GRAMS PO (22:17)
== END 2024-02-19 22:26 | disposition home or self-care (01) ==
LOC: EMR 19:54
PROVIDERS: Clinical Nurse Specialist Family Health; EMERGENCY PHYSICIAN Emergency Medicine; FAMILY PHYSICIAN Hospitalist
DX: K59.09 Other constipation (principal); R10.9 Unspecified abdominal pain; E78.00 Pure hypercholesterolemia, unspecified; J45.909 Unspecified asthma, uncomplicated; L40.9 Psoriasis, unspecified; Z88.8 Allergy status to other drugs, medicaments and biological substances; Z91.018 Allergy to other foods
CPT/HCPCS: 99283; 81003; 81015

== ENCOUNTER 2024-03-29 15:14 | Outpatient (RCR) | payer OTHER, SELFPAY | END 2024-03-29 23:59 | disposition home or self-care (01) | LOC: RPT 15:14 | PROVIDERS: ATTENDING PHYSICIAN Hospitalist; FAMILY PHYSICIAN Internal Medicine | DX: M54.50 Low back pain, unspecified (principal); Z73.6 Limitation of activities due to disability; M62.81 Muscle weakness (generalized); K59.00 Constipation, unspecified | CPT/HCPCS: 97010; 97110; 97112; 97140; 97162; 97530 ==

== ENCOUNTER 2024-04-26 14:55 | Outpatient (RCR) | payer OTHER, SELFPAY | END 2024-04-26 23:59 | disposition home or self-care (01) | LOC: RPT 14:55 | PROVIDERS: ATTENDING PHYSICIAN Hospitalist; FAMILY PHYSICIAN Internal Medicine | DX: M54.50 Low back pain, unspecified (principal); Z73.6 Limitation of activities due to disability; M62.81 Muscle weakness (generalized); K59.00 Constipation, unspecified | CPT/HCPCS: 97010; 97110; 97112; 97140; 97530 ==

== ENCOUNTER 2024-05-09 06:40 | Outpatient (RCR) | payer OTHER, SELFPAY | END 2024-05-09 23:59 | disposition home or self-care (01) | LOC: RPT 06:40 | PROVIDERS: ATTENDING PHYSICIAN Hospitalist; FAMILY PHYSICIAN Internal Medicine | DX: M54.50 Low back pain, unspecified (principal); M62.81 Muscle weakness (generalized); Z73.6 Limitation of activities due to disability; K59.00 Constipation, unspecified | CPT/HCPCS: 97110; 97112; 97530 ==

== ENCOUNTER 2024-05-26 06:24 | Day surgery (SDC) | payer OTHER, SELFPAY | END 2024-05-26 16:07 | disposition home or self-care (01) | LOC: GI 06:24 | PROVIDERS: ATTENDING PHYSICIAN Internal Medicine | DX: R19.4 Change in bowel habit (principal); K64.8 Other hemorrhoids; K55.20 Angiodysplasia of colon without hemorrhage; R19.5 Other fecal abnormalities | CPT/HCPCS: 45378 ==

== ENCOUNTER 2024-06-27 06:24 | Outpatient (RCR) | payer OTHER, SELFPAY | END 2024-06-27 23:59 | disposition home or self-care (01) | LOC: RPT 06:24 | PROVIDERS: ATTENDING PHYSICIAN Hospitalist; FAMILY PHYSICIAN Internal Medicine | DX: M54.50 Low back pain, unspecified (principal); M62.81 Muscle weakness (generalized); Z73.6 Limitation of activities due to disability; K59.00 Constipation, unspecified; K58.1 Irritable bowel syndrome with constipation; R15.2 Fecal urgency; M62.89 Other specified disorders of muscle; M54.6 Pain in thoracic spine | CPT/HCPCS: 97014; 97110; 97112; 97140; 97164; 97530 ==

== ENCOUNTER → 2024-09-28 07:57 | Outpatient (REF) | payer OTHER, SELFPAY | LOC: RAD 07:57 | PROVIDERS: ATTENDING PHYSICIAN Internal Medicine Gastroenterology; FAMILY PHYSICIAN Hospitalist | DX: R11.0 Nausea (principal) | CPT/HCPCS: 78264; A9541 ==

== ENCOUNTER → 2024-11-02 14:08 | Outpatient (REF) | payer OTHER, SELFPAY | LOC: HWRAD 14:08 | PROVIDERS: ATTENDING PHYSICIAN Nurse Practitioner Family; FAMILY PHYSICIAN Hospitalist | DX: N91.2 Amenorrhea, unspecified (principal) | CPT/HCPCS: 76830; 76856 ==

== ENCOUNTER → 2024-12-04 13:12 | Outpatient (REF) | payer OTHER, SELFPAY | LOC: RAD 13:12 | PROVIDERS: ATTENDING PHYSICIAN Internal Medicine Gastroenterology; FAMILY PHYSICIAN Hospitalist; OTHER PHYSICIAN Physician Assistant Medical | DX: R11.0 Nausea (principal) | CPT/HCPCS: 74022 ==

== ENCOUNTER → 2024-12-21 07:14 | Outpatient (REF) | payer OTHER, SELFPAY | LOC: RAD 07:14 | PROVIDERS: ATTENDING PHYSICIAN Physician Assistant Medical; FAMILY PHYSICIAN Hospitalist | DX: R11.0 Nausea (principal) | CPT/HCPCS: 78227; A9537; J2805 ==